=== PATIENT | female | born 1985 | race Caucasian/White ===

== ENCOUNTER 2017-01-23 03:30 | Inpatient (IN) | payer OTHER ==
[2017-01-23] VITALS (10 sets, daily range): BP systolic 108–132; BP diastolic 51–74
[2017-01-23] MEDS ORDERED: ACYCLOVIR200 MG PO (04:00)
[2017-01-23] MEDS ORDERED: PRENATAL TABLE1 EAC3 PO (04:00)
[2017-01-23 07:26] LABS: EOSINOPHIL (%) 0.6 % (0-5); EOSINOPHIL COUNT 0.1 K/uL (0-0.3); HEMATOCRIT 38.4 % (36.0-46.0); IMMATURE GRANULOCYTE (%) 0.4 % (0.0-0.7); LYMPHOCYTE COUNT 2.9 K/uL (1.0-2.8); MCH 31.7 PG (29.0-34.0); MCHC 34.4 G/DL (30.0-36.0); MCV 92.3 FL (83-99); MEAN PLAT.VOLUME 10.6 uM^3 (9.5-12.4); MONOCYTE (%) 8.6 % (3-12); MONOCYTE COUNT 0.8 K/uL (0-0.8); NEUTROPHIL (%) 60.9 % (45-76); PLATELET COUNT 225 K/uL (156-360); RBC DIS.WIDTH-CV 12.9 % (11.8-14.6); RBC DIS.WIDTH-SD 43.2 % (39-53); RED BLOOD COUNT 4.16 M/uL (3.80-5.20); WHITE BLOOD COUNT 9.8 K/uL (4.1-10.2)
[2017-01-23] MEDS ORDERED: MOTRIN800 MG PO (09:31)
[2017-01-24 06:18] LABS: EOSINOPHIL (%) 0.6 % (0-5); EOSINOPHIL COUNT 0.1 K/uL (0-0.3); HEMATOCRIT 31.8 % (36.0-46.0); IMMATURE GRANULOCYTE (%) 0.7 % (0.0-0.7); IMMATURE GRANULOCYTE COUNT 0.1 K/uL; INSTRUMENT ABS NEUTROPHIL CT 5.2 K/uL; LYMPHOCYTE COUNT 2.5 K/uL (1.0-2.8); MCH 31.8 PG (29.0-34.0); MCHC 33.6 G/DL (30.0-36.0); MCV 94.4 FL (83-99); MEAN PLAT.VOLUME 10.5 uM^3 (9.5-12.4); MONOCYTE (%) 8.8 % (3-12); MONOCYTE COUNT 0.8 K/uL (0-0.8); NEUTROPHIL (%) 60.9 % (45-76); NEUTROPHIL COUNT 5.2 K/uL (1.8-6.4); PLATELET COUNT 198 K/uL (156-360); RBC DIS.WIDTH-CV 13.2 % (11.8-14.6); RBC DIS.WIDTH-SD 45.2 % (39-53); RED BLOOD COUNT 3.37 M/uL (3.80-5.20); WHITE BLOOD COUNT 8.6 K/uL (4.1-10.2)
[2017-01-24 07:04] VITALS: BP 120/69
[2017-01-24 15:08] VITALS: BP 131/75
[2017-01-25 08:00] VITALS: BP 115/56
== END 2017-01-25 15:25 | disposition home or self-care (01) | DRG 774 ==
LOC: LDRP-OP 03:30 → 2WEST 03:31 → LDRP-OP 02-14 16:06
PROVIDERS: Midwife
PROC: 10E0XZZ Delivery of Products of Conception, External Approach (ICD-10-PCS; principal; 2017-01-23)
PROC: 0DQR0ZZ Repair Anal Sphincter, Open Approach (ICD-10-PCS; principal; 2017-01-23)
DX: O70.23 Third degree perineal laceration during delivery, IIIc (principal); O99.824 Streptococcus B carrier state complicating childbirth; O48.0 Post-term pregnancy; O98.52 Other viral diseases complicating childbirth; B02.9 Zoster without complications; Z3A.41 41 weeks gestation of pregnancy; Z37.0 Single live birth; Z87.891 Personal history of nicotine dependence
CPT/HCPCS: 85025; C1755; J0595; J7120

== ENCOUNTER → 2017-01-29 | Outpatient (CLI) | payer OTHER ==
[~2017-01-29] MED LIST: ACYCLOVIR200 MG PO; MOTRIN800 MG PO; PRENATAL TABLE1 EAC3 PO
== END | disposition home or self-care (01) ==
LOC: LAC 14:04
DX: Z39.1 Encounter for care and examination of lactating mother (principal); O92.13 Cracked nipple associated with lactation; O92.79 Other disorders of lactation
CPT/HCPCS: G0463